=== PATIENT | female | born 1995 | race Caucasian/White ===

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

== ENCOUNTER → 2017-01-26 | Outpatient (CLI) | payer BC ==
--- NOTE | 2017-01-26 15:45 | REP ---
Obstetric ultrasound for anatomy: There is a single intrauterine gestation in a vertex presentation. There is movement and cardiac activity. The heart rate is 133 beats per minute. The placenta is anterior. There is no placenta previa or abruptio. Placenta is grade zero. The amniotic fluid volume subjectively is normal. Cervix measures 3.3 cm length. By the ultrasound today gestational age is 19 weeks 6 days with an MILANA of 06/16/2017. The LMP is unknown. weight is 325 grams ( 0 pounds, 11 ounces). This is the 50th percentile for 19 weeks 6 days. The following anatomic structures are identified and are unremarkable: Intracranial lateral ventricles, choroid plexus, cerebellum, cisterna magna, upper lip, facial profile, face, lungs, four-chamber heart, cardiac right and left ventricular outflow tracts, diaphragm, stomach, cord insertion, three-vessel cord, kidneys, bladder, spine and upper lower extremities. No anomalies are identified. Signed by Obi Carrion MD 01/26/2017 03:37 P
== END ==
LOC: M SMT 13:43
PROVIDERS: ATTEND Advanced Practice Midwife
DX: Z34.82 Encounter for supervision of other normal pregnancy, second trimester (principal)

== ENCOUNTER → 2017-05-27 | Outpatient (REF) | payer BC | LOC: M LAB REF 13:10 | DX: Z34.83 Encounter for supervision of other normal pregnancy, third trimester (principal) | CPT/HCPCS: 87081 ==

== ENCOUNTER 2017-06-14 10:56 | Inpatient (IN) | payer BC ==
[2017-06-14 13:06] LABS: HEMATOCRIT 35.9 % (36.0-47.0); HEMOGLOBIN 12.1 g/dl (12.0-16.0); MEAN CORPUSCULAR HEMOGLOBIN 30.6 pg (27.0-33.0); MEAN CORPUSCULAR HGB CONC 33.7 g/dl (32.0-36.5); MEAN CORPUSCULAR VOLUME 90.7 fl (80.0-96.0); PLATELET COUNT, AUTOMATED 361 10^3/uL (150-450); RED BLOOD COUNT 3.96 10^6/uL (4.00-5.40); RED CELL DISTRIBUTION WIDTH 13.4 % (11.5-14.5); WHITE BLOOD COUNT 18.5 10^3/uL (4.0-10.0)
[2017-06-14 13:22] LABS: AMPHETAMINES URINE REFLEX NEGATIVE (NEGATIVE); BARBITURATES URINE REFLEX NEGATIVE (NEGATIVE); BENZODIAZEPINES URINE REFLEX NEGATIVE (NEGATIVE); CANNABINOIDS URINE REFLEX NEGATIVE (NEGATIVE); COCAINE METABOLITE URINE REFLE NEGATIVE (NEGATIVE); METHADONE URINE REFLEX NEGATIVE (NEGATIVE); OPIATES URINE REFLEX NEGATIVE (NEGATIVE); PHENCYCLIDINE URINE REFLEX NEGATIVE (NEGATIVE)
[2017-06-14] MEDS: LACTATED RINGER'S 1000 ML IV (13:22)
[2017-06-14] MEDS: LR 1,000 ML IV ×2 (13:23→16:30)
[2017-06-14] MEDS: OXYTOCIN DRIP 30 UNITS in APPROPRIATE DILUENT 1 EA IV (15:01)
[2017-06-14] MEDS ORDERED: FENTANYL 2MCG/ML ROPIVACAINE 0.2% IN 0.9% NACL 200ML IVBAG As Ordered (15:44)
[2017-06-14] MEDS ORDERED: ONDANSETRON 4MG/2ML VIAL (J2405) IV (16:45)
[2017-06-14] MEDS ORDERED: FENTANYL/ROPIVACAINE/NACL BAG 200 ML EPIDURAL (16:45)
[2017-06-14] MEDS ORDERED: ePHEDrine SULFATE 25 MG/5 ML(5MG/ML) SYRINGE IV (16:45)
[2017-06-14] MEDS ORDERED: EPIDURAL/PCA KEYS XX (16:45)
[2017-06-14] MEDS ORDERED: diphenhydrAMINE INJ 50MG/ML VIAL (J1200) IV (16:45)
[2017-06-14] MEDS ORDERED: LACTATED RINGER'S 1000 ML IV (16:45)
[2017-06-14] MEDS ORDERED: NALOXONE INJ 0.4 MG/1 ML VIAL (J2310) IV (16:45)
[2017-06-14] MEDS ORDERED: EPIDURAL COMMENT XX (16:45)
[2017-06-14] MEDS ORDERED: REFRIGERATOR IV KEYS XX (16:45)
[2017-06-14 22:46] LABS: CORD GAS ABE A -6.5; CORD GAS ABE V -4.6; CORD GAS HCO3 A 21.2 MEQ/L; CORD GAS HCO3 V 22.7 MEQ/L; CORD GAS O2 SAT A 51.1 %; CORD GAS O2 SAT V 59.8 %; CORD GAS PCO2 A 49.9 mmHg; CORD GAS PCO2 V 49.8 mmHg; CORD GAS PH A 7.246 UNITS; CORD GAS PH V 7.277 UNITS; CORD GAS PO2 A 22.9 mmHg; CORD GAS PO2 V 27.6 mmHg; CORD GAS SBC A 18.1 MEQ/L; CORD GAS SBC V 19.7 MEQ/L; CORD GAS TCO2 A 22.7 MEQ/L; CORD GAS TCO2 V 24.2 MEQ/L
[2017-06-15] MEDS ORDERED: MEASLES,MUMPS,RUBELLA VACCINE INJ (MMR-II) (90707) SC
[2017-06-15] MEDS ORDERED: METHYLERGONOVINE MALEATE 0.2 MG TAB PO
[2017-06-15] MEDS ORDERED: DIBUCAINE 1% OINTMENT 30GM TOP
[2017-06-15] MEDS ORDERED: RHOGAM 300 MCG (1500 IU) INJ (J2790) IM
[2017-06-15] MEDS ORDERED: IBUPROFEN 800 MG TAB PO
[2017-06-15] MEDS ORDERED: MOM 30ML SUSPENSION UDC PO
[2017-06-15] MEDS ORDERED: ANUSOL HC CREAM 30GM TOP
[2017-06-15] MEDS ORDERED: ACETAMINOPHEN 500 MG TAB PO
[2017-06-15] MEDS: PRENATAL VITAMINS CHEWABLE TABLET PO (09:37)
[2017-06-15] MEDS: DOCUSATE SODIUM 100 MG CAP PO (21:25)
[2017-06-16] MEDS: PRENATAL VITAMINS CHEWABLE TABLET PO (07:44)
== END 2017-06-16 10:00 | disposition home or self-care (01) | DRG 560 ==
LOC: M LDI 10:56 → M OBS 06-15 00:22
PROVIDERS: Advanced Practice Midwife
PROC: 10E0XZZ Delivery of Products of Conception, External Approach (ICD-10-PCS; principal; 2017-06-14)
PROC: 0HQ9XZZ Repair Perineum Skin, External Approach (ICD-10-PCS; 2017-06-14)
PROC: 10907ZC Drainage of Amniotic Fluid, Therapeutic from Products of Conception, Via Natural or Artificial Opening (ICD-10-PCS; 2017-06-14)
DX: O46.93 Antepartum hemorrhage, unspecified, third trimester (principal); F17.210 Nicotine dependence, cigarettes, uncomplicated; O99.334 Smoking (tobacco) complicating childbirth; Z3A.39 39 weeks gestation of pregnancy; O70.0 First degree perineal laceration during delivery; Z37.0 Single live birth

== ENCOUNTER → 2018-11-21 | Outpatient (REF) | payer BC ==
[~2018-11-21] MED LIST: ADVI200C5 PO; COLA100C5 PO; COMBAER6 INH; MAPA500T2 PO; MOM30SS PO; PRENTAB9 PO
== END ==
LOC: M LAB REF 20:09
PROVIDERS: ATTEND Advanced Practice Midwife
DX: Z12.4 Encounter for screening for malignant neoplasm of cervix (principal)